=== PATIENT | male | born 1960 | race Caucasian/White ===

== ENCOUNTER 2018-11-03 14:01 | Outpatient (RCR) | payer BC, SELFPAY ==
--- NOTE | 2018-11-03 17:47 | HP.PTEVAL_ITS ---
Patient's Visit Information KVNG KUMAR is a 57 year old M referred to Physical Therapy by Garrett Watson DO with a diagnosis of LOW BACK PAIN. Date of Evaluation: 11/03/18 Physical Therapist: Andres Haddad, PT, Cert MDT, OCS - Visit Plan Frequency: 2x /Week Duration: 4 Weeks Plan: PT INTERVENTIONS KAREL EX'S,MANUAL THERAPY ,PROGRESS DLS ABD/BACK,POSTURAL EX'S,MODALITIES NEEDED - Subjective Findings: This 57 y/o male presents to physical therapy with lumbar pain with radicular symptoms left leg. Patient has had LPB for 2 years intermmitant ,past 6 months symptoms have been constant. Patient symptoms located buttuck hamstrings. Aggravting factors lifting,bending,golfing. Alleviating factors walking and standing, Denies parathesia/tingling. Bowel/bladder good. Coughing/sneezing-. Patient has had no ttauma. Patient seen DR recommended muscle relaxer/anti-inflammtory,also affects sleeping. Patient symptoms affects QOL and housework tasks. VOCATION: [employer]. SOCIAL: . HOBBIES: golfing, biking - Pain Bilateral Back Pain Intensity (Out of 10): 7 Pain Intensity Range: 10 Comment: worse Left Lower Extremity Pain Intensity (Out of 10): 0 Pain Intensity Range: 10 - Objective POSTURE: WFL. GAIT: normal jennifer. NEURO: denies parathesia/tingling,reflexes L3-4,L4-5,L,L5-S1 3/3. SYMMTRIES: align. MMT: quads/ham5/5,hip flexion /abduction 4/5,ankle 5/5. FLEXABLITY: HAMS WFL. LUMBAR ROM: flexion min loss,side glides min loss,extension min/mod loss - Special Tests L/S Slump test left side: Negative L/S Slump test right side: Negative L/S Left Straight Leg Raise: Negative L/S Right Straight Leg Raise: Negative Lumbar Standing: Flexion - Mechanical Response: No effect Lumbar Standing: Flexion - Symptoms During Testing: Increases Lumbar Standing: Flexion - Symptoms After Testing: Worse Lumbar Standing: Extension - Mechanical Response: No effect Lumbar Standing: Extension - Symptoms During Testing: Increases Lumbar Standing: Extension - Symptoms After Testing: No worse Lumbar Standing: Right Side Glides - Mechanical Response: No effect Lumbar Standing: Right Side [place] - Symptoms During Testing: Increases Lumbar Standing: Right Side [place] - Symptoms After Testing: Worse Lumbar Standing: Left Side [place] - Mechanical Response: No effect Lumbar Standing: Left Side [place] - Symptoms During Testing: No effect Lumbar Standing: Left Side [place] - Symptoms After Testing: No effect Lumbar Lying: Flexion - Mechanical Response: No effect Lumbar Lying: Flexion - Symptoms During Testing: Increases Lumbar Lying: Flexion - Symptoms After Testing: Worse Lumbar Lying: Extension - Mechanical Response: No effect Lumbar Lying: Extension - Symptoms During Testing: Decreases Lumbar Lying: Extension - Symptoms After Testing: Better Comments:: SOME BETTER AFTER EXTENSION MOBS AND SEVERAL REIL - Goals Goal 1:: Independant with HEP. Goal Time Frame: 4-6 Weeks Goal 2:: Improve posture/body mechanics no manage back pain. Goal Time Frame: 4-6 Weeks Goal 3:: Patient to improve lumbar ROM for function of recovery. Goal Time Frame: 4-6 Weeks Goal 4:: Patient to be d/c to prophalaxis . Goal Time Frame: 4-6 Weeks Goal 5:: Patient to decrease lumbar pain by 50% or greater to improve function. Goal Time Frame: 4-6 Weeks Goal 6:: Patient to be improve back owestry score by 5 points to improve QOL. Goal Time Frame: 4-6 Weeks - Rehabilitation Potential Physical Therapy Diagnosis: This patient has possible derrangement babove knee with symptoms worse with flexion better with extension correction of posture thus benifit from skilled PT Rehabilitation Potential: Good - Anticipated Interventions Patient/Client Instruction: Educate patient on: Condition, Plan of Care For the Purpose of:: To decrease pain, To increase ROM, To improve muscle perfor santosh and motor function, To increase tolerance to activity/condition/position, To improve ability of physical actions for home/community/work/leisure, To improve health of tissue, To decrease soft tissue restriction, To increase flexibility/ROM, To improve ability to perform tasks related to life management Therapeutic Exercise to Include: Strength training, Body mechanics, Postural training, Flexibilty training, Dynamic Lumbar Stabilization, Karel Exercises For the Purpose of:: To decrease pain, To increase ROM, To improve muscle performance and motor function, To improve ability to perform ADL's, To increase tolerance to activity/condition/position, To improve ability of physical actions for home/community/work/leisure, To improve health of tissue, To decrease soft tissue restriction, To increase flexibility/ROM, To improve ability to perform tasks related to life management Manual Therapy Techniques to Include: Mobilization Comment: lumbar For the Purpose of:: To decrease pain, To improve nutrient delivery to tissue, To improve health of tissue, To decrease soft tissue restriction TENS: Yes IF ES: Yes Cryotherapy (ice pack, ice massage): Yes Thermo therapy (hot pack): Yes Ultrasound (thermal/non thermal): Yes For the Purpose of:: To decrease pain, To increase ROM, To improve health of tissue, To decrease soft tissue restriction Thank you for the opportunity to evaluate your patient. For Medicare and Medicare HMO plans, please review the plan of care and approve it. It will need to be FAXED BACK to us at [phone] for Medicare purposes. For Medicare only, by signing this I certify the plan of care. Please let me know if there are questions or concerns regarding this plan of care. Physician Signature: Date:
--- NOTE | 2019-01-10 10:24 | HP.PTDCNRP_ITS ---
HP - Discharge Summary (1) - Patient Information KVNG KUMAR was seen in my office for initial evaluation on 11/03/18. The following Plan of Care was established for this patient: Initial Frequency: 2x /Week Initial Duration: 4 Weeks - Anticipated Interventions Patient/Client Instruction: Educate patient on: Condition, Plan of Care For the Purpose of:: To decrease pain, To increase ROM, To improve muscle performance and motor function, To increase tolerance to activity/condition/position, To improve ability of physical actions for home/community/work/leisure, To improve health of tissue, To decrease soft tis maren restriction, To increase flexibility/ROM, To improve ability to perform tasks related to life management Therapeutic Exercise to Include: Strength training, Body mechanics, Postural training, Flexibilty training, Dynamic Lumbar Stabilization, [place] Exercises For the Purpose of:: To decrease pain, To increase ROM, To improve muscle performance and motor function, To improve ability to perform ADL's, To increase tolerance to activity/condition/position, To improve ability of physical actions for home/community/work/leisure, To improve health of tissue, To decrease soft tissue restriction, To increase flexibility/ROM, To improve ability to perform tasks related to life management Manual Therapy Techniques to Include: Mobilization Comment: lumbar For the Purpose of:: To decrease pain, To improve nutrient delivery to tissue, To improve health of tissue, To decrease soft tissue restriction TENS: Yes IF ES: Yes Cryotherapy (ice pack, ice massage): Yes Thermo therapy (hot pack): Yes Ultrasound (thermal/non thermal): Yes For the Purpose of:: To decrease pain, To increase ROM, To improve health of tissue, To decrease soft tissue restriction This patient was last seen in our office . Pertinent comments regarding their Physical therapy will appear below: Pateint seen for PT for Intial PT evaluation for HEP At this point I will be discontinuing this patient from physical therapy. I would be happy to see this patient again in the future if found appropriate by the physician. Thank you! Andres Haddad, PT, Cert MDT, OCS
== END 2018-11-03 19:00 | disposition home or self-care (01) ==
LOC: PT 14:01
PROVIDERS: Family Provider Internal Medicine; PCP Internal Medicine; Referring Provider Family Medicine; Visit Provider Family Medicine
DX: M54.5 Low back pain (principal)
CPT/HCPCS: 97014; 97161; G0283

== ENCOUNTER → 2018-11-07 11:01 | Outpatient (CLI) | payer BC, SELFPAY ==
--- NOTE | 2018-11-07 11:15 | RAD_ITS ---
STUDY: X-RAY - ABDOMEN/PELVIS REASON FOR EXAM: Male, 57 years old. Left-sided kidney stone TECHNIQUE: 2 views COMPARISON: None. FINDINGS: An 8.4 mm calculus is seen in the left upper quadrant. It is probably within the left kidney. No similar findings on the right side. There is no bowel distention or free intraperitoneal air. The bones and joints are within normal limits RAD/Abdomen Single View IMPRESSION: And 8.4 mm calculus in the left upper quadrant. It is within the left kidney Electronically Signed: Tam Hernandez MD at 5:32 EDT Tel , Service support ,
== END ==
PROVIDERS: Family Provider Family Medicine; PCP Family Medicine; Referring Provider Urology; Visit Provider Urology
DX: N20.0 Calculus of kidney (principal)
CPT/HCPCS: 74018

== ENCOUNTER 2018-11-09 12:03 | Day surgery (SDC) | payer BC, SELFPAY ==
[2018-11-09 12:39] VITALS: BP 105/72; PULSE 80; RESP 16; TEMP 36.9; O2SAT 97; BMI 25.8
[2018-11-09] MEDS: Cefazolin 2 GM in 0.9% Normal Saline 100 ML IV (14:37)
--- NOTE | 2018-11-09 15:01 | DCINST_ITS ---
Discharge Diet: Light diet - advance as tolerated Discharge Activity: Return to Normal Activity Call your doctor if your incision/area has: Increased Pain/ Swelling Call your doctor if you observe: Fever of 101 or Higher Allergies/Adverse Reactions: Allergies No Known Allergies Allergy (Verified 11/08/18 14:38) Medications to take at Discharge Lisinopril 5 mg PO DAILY 11/08/18 Oxycodone HCl/Acetaminophen [Percocet 5-325 mg Tablet] 1 ea PO PRN PRN 11/08/18 Ciprofloxacin [Cipro] 500 mg PO BID #14 tab 11/09/18 The following prescriptions were given: Ciprofloxacin [Cipro] 500 mg PO BID #14 tab Prescription Printed Primary Care Physician: Garrett Watson DO [Primary Care Provider] - Test Results: Test results from this visit will be discussed in further detail at your follow- up appointment, if applicable. Please Follow Up With: Bimal Aguillon MD When: please call to make an appointment.
--- NOTE | 2018-11-09 15:02 | PCM.OPRPT ---
Report of Operation Date of Procedure: 11/09/18 Pre-Operative Diagnosis: Left ureteral calculi left renal calculi hydronephrosis fevers and chills Post-Operative Diagnosis: The same suspected infected renal stones Surgery/Procedure Performed:: Cystoscopy left retropyelogram left stent placement interpretation fluoroscopic images manipulation of stone Description of Surgical Findings:: 57-year-old male who presented for shockwave lithotripsy however is found to have a fever in the preoperative setting is not been feeling well abdominal pain at this point recommended we just place a stent and will have to delay the treatment of the stones until this infection is cleared we will send the urine for culture today. 57-year-old male taken back to the operating room with a smooth induction of general anesthesia he was placed in dorsolithotomy position went into the penis with the cystourethroscope into the urethra and penis testicles were prepped and draped in usual fashion, went into the urethra the entire length urethra is normal the prostate was normal inside the bladder I then cannulated the left ureteral orifice with a Glidewire and a Pollack catheter immediately I got a return of foul looking urine advance a Pollack catheter up into the kidney and obtain urine from the kidney collected this and sent off as a specimen I then identified the stone and try to push the stone in the ureter further higher [place] I then performed a retrograde pyelogram and interpreted the fluoroscopic images and then once I saw the stent in place then over the wire I placed a stent on the left side stent was in good position and pulled the wire the stent coiled in the kidney bladder good position it was a 6 [place] by 28 cm stent. Drain the bladder patient anesthetic was reversed plan to see him next week for checkup and then will plan for shockwave lithotripsy once we know the infections cured Type of Anesthesia:: General Drains: stent right 6 fr x 28cm - Admit VTE Documentation VTE Present on Admission: No VTE Mechan Device Prophylaxis: SCD's
[2018-11-09 15:18] VITALS: BP 105/72; BP 127/81; PULSE 91; RESP 16; TEMP 37.6; O2SAT 94
[2018-11-09] MEDS: Acetaminophen 500 MG Tablet PO (15:21)
[2018-11-09 15:30] VITALS: BP 105/72; BP 114/82; PULSE 86; RESP 16; O2SAT 93
[2018-11-09] MEDS: Ciprofloxacin 400 MG/200 ML BAG 200 MG IV (15:30)
[2018-11-09 15:45] VITALS: BP 105/72; BP 124/76; PULSE 81; RESP 16; O2SAT 93
[2018-11-09 15:56] VITALS: BP 105/72; BP 123/80; PULSE 81; RESP 16; TEMP 37.4; O2SAT 92
[2018-11-09 17:11] VITALS: BP 105/72; BP 112/68; PULSE 78; RESP 18; TEMP 37.1; O2SAT 94
== END 2018-11-09 17:13 | disposition home or self-care (01) ==
LOC: SDC 12:11 → AC 12:11
PROVIDERS: Family Provider Family Medicine; PCP Family Medicine; Referring Provider Urology; Visit Provider Urology
PROC: (CPT 50590; principal; 2018-11-09 14:45)
DX: N13.2 Hydronephrosis with renal and ureteral calculous obstruction (principal); I10 Essential (primary) hypertension; D69.3 Immune thrombocytopenic purpura; Z79.899 Other long term (current) drug therapy
CPT/HCPCS: 52005; 52332; 87086; J7120; C1769; J0744; J2405

== ENCOUNTER 2018-11-18 13:41 | Day surgery (SDC) | payer BC, SELFPAY ==
[2018-11-18 14:07] VITALS: BP 129/81; PULSE 88; RESP 16; TEMP 37.2; BMI 25.7
--- NOTE | 2018-11-18 16:26 | DCINST_ITS ---
Discharge Diet: Light diet - advance as tolerated Discharge Activity: Return to Normal Activity Call your doctor if your incision/area has: Sudden Increased Bleeding Call your doctor if you observe: Fever of 101 or Higher Suture Line Care: Avoid Pulling/Pushing, Avoid Pinching/Bending Allergies/Adverse Reactions: Allergies meperidine [From Demerol] Allergy (Verified 11/18/18 14:06) Low blood pressure Medications to take at Discharge Lisinopril 5 mg PO DAILY 11/08/18 Oxycodone HCl/Acetaminophen [Percocet 5-325 mg Tablet] 1 ea PO PRN PRN 11/08/18 Ciprofloxacin [Cipro] 500 mg PO BID #14 tab 11/09/18 Primary Care Physician: Garrett Watson DO [Primary Care Provider] - Test Results: Test results from this visit will be discussed in further detail at your follow- up appointment, if applicable. Please Follow Up With: Bimal Aguillon MD When: please call to make an appointment=- next week with xray
--- NOTE | 2018-11-18 17:34 | PCM.OPRPT ---
Report of Operation Date of Procedure: 11/18/18 Pre-Operative Diagnosis: Left renal calculi and left ureteral calculi status post stent Post-Operative Diagnosis: The same Surgery/Procedure Performed:: Cystoscopy, left extracorporeal shockwave lithotripsy of the kidney, left ureteroscopy laser lithotripsy of stone in the ureter and removal of stent. Description of Surgical Findings:: 57-year-old male who last week underwent cystoscopy and stent placement for obstructing stone and and also ureteral calculi and renal calculi exam fevers and chills and infection at the time he was treated with antibiotics now presents to the hospital for treatment of the obstructing stone also treatment of stone in the kidney. Patient was taken back to the operating room at the smooth induction of general anesthesia he was placed supine on the table, we identified the stone in the left kidney he underwent shockwave lithotripsy with a 3000 shockwaves to the stone at a rate of 90 shocks per minute up to 7 kV and we monitored the stone fracturing with fluoroscopy at the completion of the cycle of treatment around 3000 shockwaves stone it broken up successfully however the stone in the ureter was too low and was not able to be treated with shockwave lithotripsy so the patient was prepped and draped in usual sterile fashion we went in dorsolithotomy position went into the bladder with a 21 [place] rigid cystourethroscope grabbed the existing stent pulled stent to the meatus advance a wire through the stent pulled up in the kidney and over the wire went in with a flexible ureteroscope I was able to get into the ureter and then I treated the stone in the ureter with laser lithotripsy until the broken little tiny fragments and then I worked down the ureter no other fragments are seen along the course of the ureter I drained the bladder did not place a stent back in the stent was removed the patient's anesthetic is being reversed plan to see him back in a few weeks with a KUB. Type of Anesthesia:: General Drains: no stent - Admit VTE Documentation VTE Present on Admission: No VTE Mechan Device Prophylaxis: SCD's
[2018-11-18 17:42] VITALS: BP 129/81; BP 140/86; PULSE 66; RESP 18; TEMP 37.5; O2SAT 98
[2018-11-18 17:45] VITALS: BP 129/81; BP 145/91; PULSE 70; RESP 18; O2SAT 100
[2018-11-18 18:00] VITALS: BP 129/81; BP 136/92; PULSE 65; RESP 18; O2SAT 100
[2018-11-18 18:12] VITALS: BP 129/81; BP 152/90; PULSE 65; RESP 18; TEMP 37.1; O2SAT 99
[2018-11-18 19:14] VITALS: BP 129/81
== END 2018-11-18 19:17 | disposition home or self-care (01) ==
LOC: SDC 13:43 → AC 13:44
PROVIDERS: Family Provider Family Medicine; PCP Family Medicine; Referring Provider Urology; Visit Provider Urology
PROC: (CPT 50590; principal; 2018-11-18 15:25)
DX: N20.2 Calculus of kidney with calculus of ureter (principal); Z87.442 Personal history of urinary calculi; I10 Essential (primary) hypertension; D69.3 Immune thrombocytopenic purpura
CPT/HCPCS: 00873; 50590; 52310; J7120; C1769; J2405

== ENCOUNTER → 2018-12-08 11:05 | Outpatient (CLI) | payer BC, SELFPAY ==
[2018-11-18 14:07] VITALS: BMI 25.7
--- NOTE | 2018-12-08 11:07 | RAD_ITS ---
STUDY: X-RAY - ABDOMEN/PELVIS REASON FOR EXAM: Male, 58 years old. History of left-sided kidney stone. TECHNIQUE: Two AP supine views of the abdomen and pelvis. COMPARISON: 07 November 2018 abdomen FINDINGS: Normal visualized lung bases. There is an unremarkable bowel gas pattern. There is no demonstrated free abdominal air. The visualized liver, spleen and kidneys are grossly normal in size and morphology. There is reduced prominence of the calcification overlying the left renal shadow compared to previous exam. Normal visualized osseous structures. RAD/Abdomen Single View IMPRESSION: Reduced appearance of calcification overlying the left renal shadow, clinically correlate for prior treatment. Electronically Signed: Vijay Aguilar DO at 21:19 EDT , Service support ,
== END ==
PROVIDERS: Family Provider Family Medicine; PCP Family Medicine; Referring Provider Urology; Visit Provider Urology
DX: N20.0 Calculus of kidney (principal)
CPT/HCPCS: 74018

== ENCOUNTER 2020-11-08 16:53 | Observation (INO) | payer BC, SELFPAY ==
[2020-11-08 16:54] VITALS: BP 138/78; PULSE 97; RESP 18; TEMP 36.7; O2SAT 92; BMI 56.9
--- NOTE | 2020-11-08 18:04 | EX.ED.DYSGE1 ---
HPI History of Present Illness Chief Complaint: Abn Labs Informant: patient Narrative Narrative: Sent in from hematology for abnormal labs. Patient reports had blood work at 11 AM. History of ITP for the past 12 years. States recently platelets were in the 20s being followed by Dr. Melara. He states most recent blood work with platelets at 14, he started on prednisone 20 mg 3 times daily over the past 2 days. Status post 7 doses prior to getting blood work earlier today. Take an additional dose after blood work. He was called due to platelets being at 9. Denies any rectal bleeding hematuria, gum bleeding. 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 Sanchez, will need IVIG 1 g/kg and admission. Prior similar symptoms: No PFSH [facility] Medical History (Updated 11/08/20 @ 20:[address] Tyson Warren DO) Chronic ITP (idiopathic thrombocytopenic purpura) History of ITP Home Medications lisinopril 5 mg PO DAILY 11/08/18 [History Last Taken 11/08/20] prednisone 20 mg PO TID 11/08/20 [History Last Taken 11/08/20] Allergy/AdvReac Type Severity Reaction Status Date / Time meperidine [From Demerol] Allergy Low blood Verified 11/08/20 16:55 pressure Social History Smoking Status: Never smoker ROS ROS ED Constitutional Constitutional ED: Denies chills, fever(s) or sweats Eyes Eyes: Denies change in vision ENT ENT ED: Denies dysphagia or sore throat Cardiovascular Cardiovascular: Denies chest pain, leg edema, palpitations or racing heartbeat Respiratory/Chest Respiratory/Chest: Denies cough, dyspnea or dyspnea on exertion Gastrointestinal Gastrointestinal: Denies abdominal pain, diarrhea, nausea or vomiting Genitourinary Genitourinary ED: Denies dysuria, hematuria or urinary frequency Musculoskeletal Musculoskeletal: Denies back pain, extremity pain or neck pain Integumentary Denies rash or wounds Neurologic Neurologic: Denies headache(s), paresthesias or weakness EXAM Physical Exam Const Vital Signs: 11/08/20 16:54 11/08/20 18:28 Temperature 98.1 F Temperature Source Temporal Pulse Rate 97 Respiratory Rate 18 Respiratory Pattern Normal Blood Pressure 138/78 H Blood Pressure Mean 98 Pulse Ox 92 Oxygen Delivery Method Room Air Positive well nourished and well developed General Appearance ED: well developed and NAD HEENT Reports moist mucous membranes HEENT Narrative: No bleeding of gums. normocephalic and atraumatic Eyes PERRL, EOMs intact bilaterally and conjunctivae normal General Eye ED: Yes normal appearance of both eyes Neck no lymphadenopathy and supple General: Negative for tenderness Chest Wall Chest: Negative for tenderness Resp normal respiratory effort and normal air movement Effort and Inspection: symmetric chest movement; Negative for respiratory distress Cardio regular rate, regular rhythm and no murmurs Peripheral Pulses: pulses 2+ throughout GI normal to inspection, nondistended, normoactive bowel sounds and non-tender Palpation: Negative for guarding or rebound tenderness present Back/Spine no CVA tenderness and no thoracic nor lumbar tenderness Extremity normal to inspection General Extremety ED: Negative for edema or tenderness General Extremity: Negative for edema Neuro oriented x3 and no sensory deficits noted Sensorium / Orientation: awake and alert Skin Skin Narrative: Scattered petechiae lesions bilateral arms and lower extremities. More so on the upper extremities. MDM MDM MDM Narrative Medical decision making narrative: Patient nontoxic there was petechiae on exam. Recheck labs platelets at 18. This was higher than earlier from reported 9. I did rediscuss with Dr. Sanchez, with it being the weekend holiday recommended continued plan with IVIG infusion at 1 g/kg dosing daily for the next 2 days. Reports of platelets starts improving can plan to discharge home with 2 doses. Recommended admission to hospitalist. I spoke with Dr. Mckenna who evaluated for admission. Lab Data Attestation: I reviewed the patient's lab results. Labs: Laboratory Results - last 24 hr 11/08/20 11/08/20 11/08/20 18:15 18:15 18:15 WBC 13.1 H RBC 5.04 Hgb 14.4 Hct 44.5 MCV 88.3 MCH 28.6 MCHC 32.4 RDW Std Deviation 46.3 H RDW Coeff of Dave 14.3 Plt Count 18 L* Immature Gran % (Auto) 0.800 Neut % (Auto) 86.4 H Lymph % (Auto) 7.3 L [place] % (Auto) 5.3 Eos % (Auto) 0.0 Baso % (Auto) 0.2 Absolute Neuts (auto) 11.3 H Absolute Lymphs (auto) 0.95 Nucleated RBC % 0 Diff Path Review May foll Platelet Estimate MKD DEC RBC Morphology NORM C+C PT 11.9 INR 0.9 APTT 22.7 L Sodium 142 Potassium 4.1 Chloride 107 Carbon Dioxide 28.0 Anion Gap 7 BUN 21 H Creatinine 1.25 Estim Creat Clear Calc 67.77 Est GFR (MDRD) Af Amer 76 Est GFR (MDRD) Non-Af 63 BUN/Creatinine Ratio 16.8 Glucose 121 H Calcium 9.4 Discharge Plan Triage Chief Complaint: Abn Labs ED Provider: Tyson Warren Dx/Rx/DC Orders Clinical Impression: History of idiopathic thrombocytopenic purpura, Acute idiopathic thrombocytopenic purpura Prescriptions: No Action lisinopril 5 MG tablet 5 mg PO DAILY RF: 0 prednisone 20 mg tablet 20 mg PO TID RF: 0 Primary Care Provider: Garrett Watson Referrals: Garrett Watson DO [Primary Care Provider] - Disposition Disposition: Acute Care [facility]
[2020-11-08 18:33] LABS: Absolute Lymphocyte Count 0.95 X10^3/uL (0.83-4.51); Absolute Neutrophil Count 11.3 X10^3/uL (2.0-7.7); Basophil# 0.02 X10^3/uL; Basophil% 0.2 % (0-1); Hematocrit 44.5 % (40-54); Hemoglobin 14.4 g/dL (13.0-16.5); Lymphocyte # 0.95 X10^3/ul (0.83-4.51); Lymphocyte % 7.3 % (19-41); Mean Corp Hgb Conc 32.4 g/dL (32-36); Mean Corpuscular Hgb 28.6 pg (27.0-32.0); Mean Corpuscular Volume 88.3 fL (80-94); Monocyte# 0.69 X10^3/uL; Monocyte% 5.3 % (0-10); NRBC Flagged by Analyzer 0 % (0-5); Neutrophil # 11.29 X10^3/uL (2.7-7.7); Neutrophil % 86.4 % (47-70); POSITIVE COUNT YES; RBC Distribution Width CV 14.3 % (11.6-14.6); RBC Distribution Width SD 46.3 fl (35.1-43.9); Red Blood Count 5.04 M/mm3 (4.6-6.2); White Blood Count 13.1 K/mm3 (4.4-11.0)
[2020-11-08 18:36] LABS: Differential Indicated SCAN CRITERIA MET; Platelet Count 18 K/mm3 (150-450)
--- NOTE | 2020-11-08 18:39 | ED.RN ---
LAB CALLED CRITICAL OF PLATELETS OF 18.DR EVANS
[2020-11-08 18:45] LABS: Anion Gap 7 (5-15); BUN 21 mg/dL (7-18); BUN/Creat Ratio 16.8 RATIO (10-20); Calcium,Total 9.4 mg/dL (8.5-10.1); Chloride 107 mmol/L (98-107); Creatinine, Serum 1.25 mg/dL (0.70-1.30); EST Glomerular Filtration Rate 63 mL/min (>60); Est Glom Filt Rate - Afr Amer 76 mL/min (>60); Estimated Creatinine Clearance 67.77 ml/min; Glucose 121 mg/dL (74-106); Potassium 4.1 mmol/L (3.5-5.1); Sodium Level 142 mmol/L (136-145)
[2020-11-08 18:46] LABS: International Normalized Ratio 0.9; Partial Thromboplast Time 22.7 Seconds (24.1-36.2); Prothrombin Time (Protime)PT. 11.9 SECONDS (11.7-14.9)
[2020-11-08 19:09] LABS: Platelet Estimate MKD DEC (ADEQ); Red Cell Morphology NORM C+C NORMAL (NORM C&C)
--- NOTE | 2020-11-08 19:40 | PCM.HP.STD ---
HPI - General General Date of Admission: 11/08/20 Date of Service: 11/08/20 Chief Complaint: Abnormal labs, low plts, send per hematology/oncology. HPI Narrative The patient is a 59 y/o M w/ PMHx: ITP, HTN, HLD, Anxiety who presents to the [facility] ED on 11/08/20 with history of recent evaluation outpatient with Dr. Melara with outpatient plts 20, prior had been 14 with recent prednisone 20 mg TID with a current total of 7 doses with repeat level following noted to be lowering at 9 prompting ED referral for IVIG. Patient noted petechiae and bruising primarily at any lab draw sites but denied any hematuria, rectal bleeding or bleeding of his gums. 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 He does shave routinely which was discussed to avoid at this point until platelets improved and he is understanding. Work-up in the ED included T 98.1, heart rate 97, BP 130/78, 99% on room air, CBC with WC 13.1, hemoglobin 14.4, platelets 18 although earlier in the day at oncology office was 9, left shift noted, PTT 22.7, PT 11.9, INR 0.9, BMP with BUN/creatinine 21/1.25, glucose 121 otherwise not marked appearing. In the ED discussed with ED physician and IVIG 1 mg/kg initiation requested which was also reviewed and discussed with pharmacy with dosing appropriately initiated. [facility] Medical History (Updated 11/08/20 @ 20:56 by Liliane Solorio) Chronic ITP (idiopathic thrombocytopenic purpura) GERD (gastroesophageal reflux disease) History of anxiety History of hyperlipidemia History of hypertension History of ITP Hypertension Kidney stones Non-smoker Osteoarthritis Seasonal affective disorder Home Medications lisinopril 5 mg PO DAILY 11/08/18 [History Last Taken 11/08/20 08:00] prednisone 20 mg PO TID 11/08/20 [History Last Taken 11/08/20 12:00] Allergy/AdvReac Type Severity Reaction Status Date / Time meperidine [From Demerol] Allergy Low blood Verified 11/08/20 16:55 pressure Family History (Updated 11/08/20 @ 20:[address] Bernarda Mckenna MD) Mother Osteoarthritis Father Heart disease Surgical History S/P tonsillectomy S/P ureteral stent placement Social History (Updated 11/08/20 @ 20:[address] Bernarda Mckenna MD) household members: none Smoking Status: Never smoker alcohol intake: current alcohol intake frequency: a few times a month substance use type: does not use ROS ROS Narrative Admission Review of Systems: CONSTITUTIONAL: No weight loss, fever, chills, weakness or fatigue. HEENT: Eyes: No visual loss, blurred vision, double vision or yellow sclerae. Ears, Nose, Throat: No hearing loss, sneezing, congestion, runny nose or sore throat. SKIN: No rash or itching, lesions, wounds. CARDIOVASCULAR: No chest pain, chest pressure or chest discomfort, palpitations, edema, orthopnea, syncopal events. RESPIRATORY: No shortness of breath, cough or sputum, wheezing, hemoptysis. GASTROINTESTINAL: No anorexia, nausea, vomiting or diarrhea, abdominal pain, melena, BRBPR. GENITOURINARY: No dysuria, frequency, urgency or retention. NEUROLOGICAL: No headache, dizziness, syncope, paralysis, ataxia, numbness or tingling in the extremities, focal weakness, change in bowel or bladder control, seizure. MUSCULOSKELETAL: No muscle, back pain, joint pain or stiffness. HEMATOLOGIC: + anemia, bleeding or bruising. LYMPHATICS: No enlarged nodes. No history of splenectomy. PSYCHIATRIC: + Seasonal affective disorder, no specific history of depression or anxiety. ENDOCRINOLOGIC: No reports of sweating, cold or heat intolerance. No polyuria or polydipsia. ALLERGIES: No history of asthma, hives, eczema or rhinitis. Vital Signs Vital Signs Vital Signs: 11/08/20 16:54 11/08/20 18:28 Temperature 98.1 F Temperature Source Temporal Pulse Rate 97 Respiratory Rate 18 Respiratory Pattern Normal Blood Pressure 138/78 H Blood Pressure Mean 98 Pulse Ox 92 Oxygen Delivery Method Room Air Weight Weight: 407 lb 13.683 oz Body Mass Index (BMI) 56.9 Physical Exam Narrative Physical Examination: General: Awake, alert, oriented x 3 and cooperative, seated upright in the ED bed in no apparent distress. Skin: Normal color, normal turgor, no icterus, no cyanosis except occasional petechial findings but at sites of previous lab draws, no bleeding gums or other diffuse evidence of bleeding. HEENT: AT/NC, EOMI, PERRLA, MMM, no carotid bruits or JVD noted. Lungs: CTA bilaterally, moderate effort, mild decrease BL bases, no rales, ronchi or wheezing. Heart: Regular rate and rhythm; no gallop, rub audible. Abdomen: Soft, NTTP, ND, normal BS, no HSM. Extremities: No cyanosis, clubbing, or edema. Neurological: Patient awake, alert, oriented as noted, cognitive function intact; pupils equally reactive to light and accommodation, cranial nerves II-XII grossly normal, moving all 4 extremities, no focal deficits, strength preserved. Psychiatric: Affect appears normal, no acute evidence of depressive or anxiety feelings. Results Lab / Micro Data Result Diagrams: 11/08/20 18:15 11/08/20 18:15 Labs: Laboratory Results - last 24 hr 11/08/20 11/08/20 11/08/20 18:15 18:15 18:15 WBC 13.1 H RBC 5.04 Hgb 14.4 Hct 44.5 MCV 88.3 MCH 28.6 MCHC 32.4 RDW Std Deviation 46.3 H RDW Coeff of Dave 14.3 Plt Count 18 L* Immature Gran % (Auto) 0.800 Neut % (Auto) 86.4 H Lymph % (Auto) 7.3 L Delta % (Auto) 5.3 Eos % (Auto) 0.0 Baso % (Auto) 0.2 Absolute Neuts (auto) 11.3 H Absolute Lymphs (auto) 0.95 Nucleated RBC % 0 Diff Path Review May foll Platelet Estimate MKD DEC RBC Morphology NORM C+C PT 11.9 INR 0.9 APTT 22.7 L Sodium 142 Potassium 4.1 Chloride 107 Carbon Dioxide 28.0 Anion Gap 7 BUN 21 H Creatinine 1.25 Estim Creat Clear Calc 67.77 Est GFR (MDRD) Af Amer 76 Est GFR (MDRD) Non-Af 63 BUN/Creatinine Ratio 16.8 Glucose 121 H Calcium 9.4 Assessment & Plan Assessment/Plan (1) Acute idiopathic thrombocytopenic purpura: PLAN: The patient is a 59 y/o M w/ PMHx: ITP, HTN, HLD, Anxiety who presents to the [facility] ED on 11/08/20 with history of recent evaluation outpatient with Dr. Melara with outpatient plts 20, prior had been 14 with recent prednisone 20 mg TID with a current total of 7 doses with repeat level following noted to be lowering at 9 prompting ED referral. 1. Acute idiopathic thrombocytopenia purpura, on chronic: Patient with recent worsened platelet count, ongoing despite oral prednisone therapy outpatient, will admit to medical surgical floor, maintain on telemetry, continue with planned IVIG administration to initiate now with 1 mg/kg daily dosing, will continue with oncology/hematology consultation, Dr. Melara with who the patient follows, trend CBC daily and once clinically improving would plan discharge to home. 2. Hypertension: Continue home regimen including lisinopril with hold parameters as needed, PRN hydralazine. 3. Hyperlipidemia: Not on regimen, defer to outpatient. 4. Anxiety, seasonal affective disorder: Patient not on regimen, encourage continued outpatient follow-up. 5. DVT prophylaxis: We will defer SCDs, chemoprophylaxis given #1. Charges/Coding Visit Charges OBSV E&M: 79294 Initial observation care L3
[2020-11-08 19:57] VITALS: BMI 26.6
[2020-11-08 20:46] VITALS: BP 131/72; PULSE 91; RESP 16; TEMP 36.6; O2SAT 97
[2020-11-08 20:47] LABS: Magnesium 2.5 mg/dL (1.6-2.6); Phosphorus 1.9 mg/dL (2.5-4.9)
[2020-11-08 20:51] VITALS: BMI 26.3
[2020-11-08 21:49] VITALS: BP 151/77; PULSE 64; RESP 16; TEMP 37.1; O2SAT 96
[2020-11-08] MEDS: Famotidine 20 MG Tablet PO (21:55)
[2020-11-08] MEDS: 0.9% Saline Lock 10 ML Syringe IV (22:01)
[2020-11-08] MEDS: Dextrose 5% 250 ML 100 ML IV (22:04)
[2020-11-08 23:00] VITALS: PULSE 67
[2020-11-08] MEDS: DiphenhydrAMINE 25 MG Capsule PO (23:45)
[2020-11-08] MEDS: Acetaminophen 325 MG Tablet 650 MG PO (23:45)
[2020-11-09] VITALS (14 sets, daily range): BP systolic 129–165; BP diastolic 66–87; PULSE 54–89; RESP 15–18; TEMP 36.8–37.4; O2SAT 94–100
[2020-11-09] MEDS: 0.9% Saline Lock 10 ML Syringe IV ×2 (00:14→05:16)
[2020-11-09] MEDS: Immune Globulin 20 gm Premixed Solution 37.5 BAG IV (00:15)
[2020-11-09] MEDS: Immune Globulin 20 gm Premixed Solution 187 BAG IV (02:27)
[2020-11-09] MEDS: Immune Globulin 20 gm Premixed Solution 262 BAG IV (03:34)
[2020-11-09] MEDS: Immune Globulin 10 gm Premixed Solution 300 BAG IV (04:36)
[2020-11-09] MEDS: Immune Globulin 5 GM Premixed Solution 337 BAG IV (05:01)
[2020-11-09 07:42] LABS: Absolute Lymphocyte Count 1.72 X10^3/uL (0.83-4.51); Absolute Neutrophil Count 6.7 X10^3/uL (2.0-7.7); Basophil# 0.01 X10^3/uL; Basophil% 0.1 % (0-1); Eosinophil# 0.02 X10^3/uL; Eosinophils% 0.2 % (0-5); Hematocrit 38.1 % (40-54); Hemoglobin 12.4 g/dL (13.0-16.5); Lymphocyte # 1.72 X10^3/ul (0.83-4.51); Lymphocyte % 18.8 % (19-41); Mean Corp Hgb Conc 32.5 g/dL (32-36); Mean Corpuscular Hgb 28.6 pg (27.0-32.0); Monocyte# 0.62 X10^3/uL; Monocyte% 6.8 % (0-10); NRBC Flagged by Analyzer 0 % (0-5); Neutrophil # 6.74 X10^3/uL (2.7-7.7); Neutrophil % 73.6 % (47-70); POSITIVE COUNT YES; Platelet Count 31 K/mm3 (150-450); RBC Distribution Width CV 14.4 % (11.6-14.6); RBC Distribution Width SD 46.4 fl (35.1-43.9); Red Blood Count 4.33 M/mm3 (4.6-6.2); White Blood Count 9.2 K/mm3 (4.4-11.0)
[2020-11-09 07:44] LABS: Differential Indicated SCAN CRITERIA MET
[2020-11-09 08:08] LABS: ALB/GLOB Ratio 0.7 RATIO (0.9-2.4); AST(SGOT) 8 U/L (15-37); Alanine Aminotransfer ALT/SGPT 20 U/L (16-61); Albumin, Serum 3.2 g/dL (3.2-5.0); Alkaline Phosphatase 67 U/L (45-117); Anion Gap 7 (5-15); BUN 18 mg/dL (7-18); BUN/Creat Ratio 15.9 RATIO (10-20); Calcium,Total 8.6 mg/dL (8.5-10.1); Chloride 106 mmol/L (98-107); Creatinine, Serum 1.13 mg/dL (0.70-1.30); EST Glomerular Filtration Rate 70 mL/min (>60); Est Glom Filt Rate - Afr Amer 85 mL/min (>60); Estimated Creatinine Clearance 74.97 ml/min; Globulin 4.4 g/dL (2.2-4.2); Glucose 91 mg/dL (74-106); Potassium 3.7 mmol/L (3.5-5.1); Protein, Total 7.6 g/dL (6.4-8.2); Sodium Level 139 mmol/L (136-145)
--- NOTE | 2020-11-09 08:11 | CON.PCM_ITS ---
Consult Date of Consult: 11/09/[address] Bernarda Mckenna regarding patient with history of acute ITP. My final recommendation will be communicated to medical staff and also by electronic medical record HPI Narrative The patient is a 59 y/o M w/ PMHx: ITP, HTN, HLD, Anxiety who presents to the [facility] ED on 11/08/20 with history of recent evaluation outpatient with Dr. Melara with outpatient plts 20,000 prior had been 14,0000. He recently started prednisone 20 mg TID with a current total of 7 doses with repeat level following noted to be lowering at 9,000 prompting ED referral for IVIG. Patient noted petechiae and bruising primarily at any lab draw sites but denied any hematuria, rectal bleeding or bleeding of his gums. . Work-up in the ED included T 98.1, heart rate 97, BP 130/78, 99% on room air, CBC with WC 13.1, hemoglobin 14.4, platelets 18 although earlier in the day at oncology office was 9, left shift noted, PTT 22.7, PT 11.9, INR 0.9, BMP with BUN/creatinine 21/1.25, glucose 121 otherwise not marked appearing. In the ED discussed with ED physician and IVIG 1 mg/kg initiation requested which was also reviewed and discussed with pharmacy with dosing appropriately initiated. He was previously diagnosed with ITP 10 years ago and was treated with short course of prednisone. For the last 2 months he complains of arthritic pain and has been using Aleve and Tylenol on a regular basis. He also taking fish oil supplements. He denies history of viral hepatitis, HIV or significant alcohol use [facility] Medical History (Updated 11/08/20 @ 20:56 by Liliane Solorio) Acute/chronic ITP (idiopathic thrombocytopenic purpura) GERD (gastroesophageal reflux disease) History of anxiety History of hyperlipidemia History of hypertension History of ITP Hypertension Kidney stones Non-smoker Osteoarthritis Seasonal affective disorder Home Medications lisinopril 5 mg PO DAILY 11/08/18 [History Last Taken 11/08/20 08:00] prednisone 20 mg PO TID 11/08/20 [History Last Taken 11/08/20 12:00] Allergy/AdvReac Type Severity Reaction Status Date / Time meperidine [From Demerol] Allergy Low blood Verified 11/08/20 16:55 pressure Family History (Updated 11/08/20 @ 20:[address] Bernarda Mckenna MD) Mother Osteoarthritis Father Heart disease Surgical History S/P tonsillectomy S/P ureteral stent placement Social History (Updated 11/08/20 @ 20:[address] Bernarda Mckenna MD) household members: none Smoking Status: Never smoker alcohol intake: current alcohol intake frequency: a few times a month substance use type: does not use ROS ROS Narrative Admission Review of Systems: CONSTITUTIONAL: No weight loss, fever, chills, weakness or fatigue. HEENT: Eyes: No visual loss, blurred vision, double vision or yellow sclerae. Ears, Nose, Throat: No hearing loss, sneezing, congestion, runny nose or sore throat. SKIN: No rash or itching, lesions, wounds. CARDIOVASCULAR: No chest pain, chest pressure or chest discomfort, palpitations, edema, orthopnea, syncopal events. RESPIRATORY: No shortness of breath, cough or sputum, wheezing, hemoptysis. GASTROINTESTINAL: No anorexia, nausea, vomiting or diarrhea, abdominal pain, melena, BRBPR. GENITOURINARY: No dysuria, frequency, urgency or retention. NEUROLOGICAL: No headache, dizziness, syncope, paralysis, ataxia, numbness or tingling in the extremities, focal weakness, change in bowel or bladder control, seizure. MUSCULOSKELETAL: No muscle, back pain, joint pain or stiffness. HEMATOLOGIC: + anemia, bleeding or bruising. LYMPHATICS: No enlarged nodes. No history of splenectomy. PSYCHIATRIC: + Seasonal affective disorder, no specific history of depression or anxiety. ENDOCRINOLOGIC: No reports of sweating, cold or heat intolerance. No polyuria or polydipsia. ALLERGIES: No history of asthma, hives, eczema or rhinitis. Physical Exam Narrative Physical Examination: General: Awake, alert, oriented x 3 and cooperative, seated upright in the ED bed in no apparent distress. Skin: Normal color, normal turgor, no icterus, no cyanosis except occasional petechial findings but at sites of previous lab draws, no bleeding gums or other diffuse evidence of bleeding. HEENT: AT/NC, EOMI, PERRLA, MMM, no carotid bruits or JVD noted. Lungs: CTA bilaterally, moderate effort, mild decrease BL bases, no rales, ronchi or wheezing. Heart: Regular rate and rhythm; no gallop, rub audible. Abdomen: Soft, NTTP, ND, normal BS, no HSM. Extremities: No cyanosis, clubbing, or edema. Neurological: Patient awake, alert, oriented as noted, cognitive function intact; pupils equally reactive to light and accommodation, cranial nerves II- XII grossly normal, moving all 4 extremities, no focal deficits, strength preserved. Psychiatric: Affect appears normal, no acute evidence of depressive or anxiety feelings. Assessment & Plan Assessment/Plan (1) Acute idiopathic thrombocytopenic purpura: The patient is a 59 y/o M w/ PMHx: ITP, HTN, HLD, Anxiety who presents to the [facility] ED on 11/08/20 with history of ITP. He recently started on prednisone 20 mg TID last week. His platelet count went from 14,000 to 9,000 which brought him to the emergency room for further evaluation and treatment. -He received 1 dose of IVIG 1gram/kg last night and his platelet count responded > 34,000 this morning -No clinical bleeding or bruising. Assessment & Plan Assessment/Plan (1) Acute idiopathic thrombocytopenic purpura: PLAN: -Continue prednisone 60mg/day and taper as previously instructed. -Continue Pepcid prophylaxis while on prednisone therapy. -Avoid aspirin, NSAIDs and dietary supplements -Follow-up and repeat CBC next week in our office -Possibly start N'plate if he still has persistent thrombocytopenia from ITP -Discharged home this morning & call if he has any excessive bleeding or bruising
[2020-11-09 08:24] LABS: Platelet Estimate MKD DEC (ADEQ)
--- NOTE | 2020-11-09 08:37 | PCM.DC ---
Discharge Instructions Diet Discharge Diet: No restrictions Activity Discharge Activity: Return to Normal Activity Follow Up Care Test Results: Test results from this visit will be discussed in further detail at your follow-up appointment, if applicable. Discharge Plan Admission Admit Date/Time: 11/08/20 20:23 Attending Provider: Calvin Figueroa Primary Care Provider: Garrett Watson Consulting Providers: Pranay eMlara Discharge Orders/Prescriptions Prescriptions: New famotidine 20 mg Tablet 20 mg PO DAILY Qty: 0 RF: 0 Continued lisinopril 5 MG tablet 5 mg PO DAILY RF: 0 prednisone 20 mg tablet 20 mg PO TID RF: 0 Referrals / Follow Up: Garrett Watson DO [Primary Care Provider] - Within 2 Weeks Pranay Melara DO [STAFF PHYSICIAN] - In 1 Week Disposition Disposition (needs filled in before D/C Order can be placed): Home, Self Care
--- NOTE | 2020-11-09 08:40 | PCM.DC.SUM ---
Providers Date of Admission: 11/08/20 Primary Care Physician: Dr. 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 Previously, his platelets had been 14,000 and had been started on prednisone. Patient has been noticing petechiae and bruising. Patient was advised to come to the emergency room. His platelets upon arrival were 18,000. Patient did receive one-time dose of IVIG and today at 31,000. Patient was seen in consultation by Dr. Sanchez and felt that since the patient's bruising had stopped and patient's platelets have gone up with IVIG that he is safe for discharge. Patient will continue with the prednisone as previously prescribed by Dr. Melara and patient will follow up with next week. Physical Exam Narrative up at the side of bed. afebrile. Const alert General Appearance: cooperative Weight / BMI Weight Weight: 86.273 kg Body Mass Index (BMI) 26.3 ABG / Lab / Microbiology Data Result Diagrams: 11/09/20 06:57 11/09/20 06:57 Laboratory: Laboratory Results - last 24 hr 11/08/20 11/08/20 11/08/20 18:15 18:15 18:15 WBC 13.1 H RBC 5.04 Hgb 14.4 Hct 44.5 MCV 88.3 MCH 28.6 MCHC 32.4 RDW Std Deviation 46.3 H RDW Coeff of Dave 14.3 Plt Count 18 L* MPV Immature Gran % (Auto) 0.800 Neut % (Auto) 86.4 H Lymph % (Auto) 7.3 L [place] % (Auto) 5.3 Eos % (Auto) 0.0 Baso % (Auto) 0.2 Absolute Neuts (auto) 11.3 H Absolute Lymphs (auto) 0.95 Nucleated RBC % 0 Diff Path Review May foll Platelet Estimate MKD DEC RBC Morphology NORM C+C PT 11.9 INR 0.9 APTT 22.7 L Sodium 142 Potassium 4.1 Chloride 107 Carbon Dioxide 28.0 Anion Gap 7 BUN 21 H Creatinine 1.25 Estim Creat Clear Calc 67.77 Est GFR (MDRD) Af Amer 76 Est GFR (MDRD) Non-Af 63 BUN/Creatinine Ratio 16.8 Glucose 121 H Calcium 9.4 Phosphorus Magnesium Total Bilirubin AST ALT Alkaline Phosphatase Total Protein Albumin Globulin Albumin/Globulin Ratio 11/08/20 11/09/20 11/09/20 Unknown 06:57 06:57 WBC 9.2 RBC 4.33 L Hgb 12.4 L Hct 38.1 L MCV 88.0 MCH 28.6 MCHC 32.5 RDW Std Deviation 46.4 H RDW Coeff of Dave 14.4 Plt Count 31 L* MPV TNP Immature Gran % (Auto) 0.500 Neut % (Auto) 73.6 H Lymph % (Auto) 18.8 L [place] % (Auto) 6.8 Eos % (Auto) 0.2 Baso % (Auto) 0.1 Absolute Neuts (auto) 6.7 Absolute Lymphs (auto) 1.72 Nucleated RBC % 0 Diff Path Review Platelet Estimate MKD DEC RBC Morphology PT INR APTT Sodium 139 Potassium 3.7 Chloride 106 Carbon Dioxide 26.0 Anion Gap 7 BUN 18 Creatinine 1.13 Estim Creat Clear Calc 74.97 Est GFR (MDRD) Af Amer 85 Est GFR (MDRD) Non-Af 70 BUN/Creatinine Ratio 15.9 Glucose 91 Calcium 8.6 Phosphorus 1.9 L Magnesium 2.5 Total Bilirubin 0.60 AST 8 L ALT 20 Alkaline Phosphatase 67 Total Protein 7.6 Albumin 3.2 Globulin 4.4 H Albumin/Globulin Ratio 0.7 L D/C Instructions Discharge Diet: No restrictions Meaningful Use Info Meaningful Use Diagnoses (Choose all that apply): None applicable Discharge Plan Admission Admit Date/Time: 11/08/20 20:23 Attending Provider: Calvin Figueroa Primary Care Provider: Garrett Watson Consulting Providers: Pranay Melara Discharge Orders/Prescriptions Prescriptions: New famotidine 20 mg Tablet 20 mg PO DAILY Qty: 0 RF: 0 Continued lisinopril 5 MG tablet 5 mg PO DAILY RF: 0 prednisone 20 mg tablet 20 mg PO TID RF: 0 Referrals / Follow Up: Garrett Watson DO [Primary Care Provider] - Within 2 Weeks Pranay Melara DO [STAFF PHYSICIAN] - In 1 Week Disposition Disposition (needs filled in before D/C Order can be placed): Home, Self Care Charges/Coding Visit Charges OBSV E&M: 80405 Observation care discharge
[2020-11-12 11:58] LABS: Pathologist Review Reviewed
[2020-11-12 12:09] LABS: Pathologist Review Reviewed
== END 2020-11-09 10:00 | disposition home or self-care (01) ==
LOC: ED 20:26 → MS3 20:53
PROVIDERS: Admitting Provider Family Medicine; Emergency Provider Emergency Medicine; PCP Family Medicine
DX: D69.3 Immune thrombocytopenic purpura (principal); I10 Essential (primary) hypertension; E78.5 Hyperlipidemia, unspecified; K21.9 Gastro-esophageal reflux disease without esophagitis; F41.9 Anxiety disorder, unspecified; F39 Unspecified mood [affective] disorder; M19.90 Unspecified osteoarthritis, unspecified site; Z79.899 Other long term (current) drug therapy; Z79.52 Long term (current) use of systemic steroids
CPT/HCPCS: 36415; 80048; 80053; 83735; 84100; 85025; 85610; 85730; 96361; 96365; 96366; 96375; 99218; 99251; 99284; A4216; G0378; G0463; J1568

== ENCOUNTER 2025-04-23 14:20 | Emergency (ER) | payer BC, SELFPAY ==
[2025-04-23 14:21] VITALS: BP 143/78; PULSE 82; RESP 16; TEMP 36.8; O2SAT 96; BMI 26.0
[2025-04-23 17:37] VITALS: PULSE 81; RESP 16; O2SAT 100
[2025-04-23 17:41] LABS: Mucous, Urine 0 SEEN /hpf (<or=2+); Squamous Epithelial Cells - UA 0 SEEN /hpf (0-5)
[2025-04-23 17:44] LABS: Color, Urine Yellow (Yellow); Glucose, Dipstick Normal (Normal); Ketone-Dipstick Negative (Negative); Leukocyte Esterase-Dipstick Negative /ul (Negative); Nitrite-Dipstick Negative (Negative); Occult Blood-Urine 10 /ul (Negative); Protein-Dipstick 15 mg/dl (Negative); Specific Gravity, Urine 1.015 (1.002-1.030); Urine Bilirubin Dipstick Negative (Negative)
[2025-04-23 17:45] LABS: Hematocrit 43.3 % (40-54); Hemoglobin 14.2 g/dL (13.0-16.5); Immature Granulocytes Count 0.020 X10^3/uL (0.0-0.0); Mean Corp Hgb Conc 32.8 g/dL (32-36); Mean Corpuscular Volume 89.8 fL (80-94); Mean Platelet Vol. 12.2 fl (6.2-12.0); NRBC Flagged by Analyzer 0 % (0-5); Platelet Count 121 K/mm3 (150-450); RBC Distribution Width CV 13.5 % (11.6-14.6); RBC Distribution Width SD 44.5 fl (35.1-43.9); Red Blood Count 4.82 M/mm3 (4.6-6.2); White Blood Count 8.8 K/mm3 (4.4-11.0)
--- NOTE | 2025-04-23 17:46 | CT_ITS ---
PROCEDURE: CT ABDOMEN/PELVIS W IV CONT ONLY 04/23/2025 REASON FOR EXAM: R GROIN PAIN, HX OF HERNIA TECHNIQUE: Procedure Code: [id number] Modality: CT Procedure: ABDOMEN/PELVIS W IV CONT ONLY Coronal and Sagittal reconstruction series were provided. CONTRAST: Isovue 370 VOLUME: 100 mL One or more dose reduction techniques were used (e.g., Automated exposure control, adjustment of the mA and/or kV according to patient size, use of iterative reconstruction technique. RADIATION DOSE SUMMARY: DLP: 771.09 mGycm COMPARISON: None. FINDINGS: Lung bases: Clear. Liver: No significant abnormality. Subcentimeter presumed cyst in the left lobe. Gallbladder: Unremarkable. Spleen: Unremarkable. Pancreas: Unremarkable. Adrenals: Unremarkable. Kidneys: Unremarkable. No urolithiasis or hydronephrosis. Bladder: Unremarkable. Reproductive Organs: Mildly enlarged prostate. Small right inguinal hernia. Bowel: No evidence of obstruction or active inflammatory process. Normal appendix. Small right inguinal hernia containing a short-segment of herniated distal small bowel and mesenteric fat/vessels, without findings to suggest obstruction or strangulation/incarceration. Lymph nodes: No enlarged abdominopelvic lymph nodes. Vasculature: Normal in course and caliber. Mild atherosclerotic disease. Peritoneum / Retroperitoneum: No ascites or free air. Bones: Mild degenerative changes of the spine. CT/Abdomen/Pelvis W IV Cont ONLY IMPRESSION: Small right inguinal hernia containing a short-segment of herniated distal smal l bowel in the right inguinal canal, without evidence for obstruction or strangulation/incarceration. Reading Location: [id number]
[2025-04-23] MEDS: 0.9% Normal Saline (1000mL) 1,000 ML 999 ML IV (18:08)
[2025-04-23 18:21] LABS: AST(SGOT) 16 U/L (<=37); Alanine Aminotransfer ALT/SGPT 15 U/L (<=46); Albumin, Serum 4.4 g/dL (3.4-4.8); Alkaline Phosphatase 89 U/L (40-129); Anion Gap 11 (5-15); BUN 21 mg/dL (4-19); BUN/Creat Ratio 21.6 RATIO (10-20); Calcium,Total 9.6 mg/dL (7.6-11.0); Carbon Dioxide 22.9 mmol/L (21.0-32.0); Chloride 108 mmol/L (98-108); Estimated Creatinine Clearance 81.94 ml/min (50-250); Globulin 2.3 g/dL (2.2-4.2); Glucose 111 mg/dL (70-99); Lipase 51 U/L (13-75); Potassium 4.1 mmol/L (3.3-5.1)
--- NOTE | 2025-04-23 18:27 | EX.ED.GUMALE ---
HPI History of Present Illness Chief Complaint: Male Pain/Injury Narrative Narrative: Patient 64-year-old male past medical history of GERD, ITP, hypertension, lipidemia, anxiety who presented to the emergency department with the chief complaint of right groin pain. He states that about 2 weeks he is scheduled to have surgery for his inguinal hernia by Dr. Ruiz. He states that the pain has been progressively worsening through the weekend he is having significant mount of pain and therefore he was advised to come here to the emergency department to be further evaluated. He states that he does not recall a inciting event where his hernia developed. He did note back in January he lost his youngest brother which he has been lifting and carrying stuff and attempts to clean out his house with other family members but does not recall ever having pain during this episode. [facility] Medical History Osteoarthritis GERD (gastroesophageal reflux disease) Kidney stones Non-smoker Hypertension History of ITP Chronic ITP (idiopathic thrombocytopenic purpura) Seasonal affective disorder History of hypertension History of hyperlipidemia History of anxiety Home Medications ?Medication ?Instructions ?Recorded ?Last Taken ?Type lisinopril 5 mg tablet 5 mg PO DAILY BP 11/08/18 11/08/20 08:00 History eltrombopag olamine 25 mg tablet 25 mg PO DAILY 04/17/25 Unknown History (Promacta) hydroxyzine HCl 25 mg tablet 25 mg PO BID PRN 04/17/25 Unknown History multivitamin 1 tab PO DAILY 04/17/25 Unknown History ondansetron 4 mg disintegrating 4 mg PO Q6H PRN nausea and 04/23/25 Unknown Rx tablet vomiting #20 tabs oxycodone-acetaminophen 5 mg-325 1 tab PO Q6H PRN pain 2 days #8 04/23/25 Unknown Rx mg tablet (Endocet) tabs Allergy/AdvReac Type Severity Reaction Status Date / Time meperidine (From Demerol) Allergy Severe Anaphylaxis Verified 04/23/25 14:22 Family History Mother Osteoarthritis Father Heart disease Surgical History S/P ureteral stent placement S/P tonsillectomy Social History household members: none Smoking Status: Never smoker alcohol intake: current alcohol intake frequency: a few times a month substance use type: does not use ROS ROS ED ROS Narrative Constitutional: Denies any fevers, chills, headaches Cardiovascular: Denies chest pain Respiratory: Denies shortness of breath Abdomen: Complains of lower abdominal pain denies nausea vomiting diarrhea : Denies any urinary symptoms Neurological: Denies any numbness, weakness, tingling Musculoskeletal: Denies back pain Skin: Denies rashes or lesions EXAM Physical Exam Narrative Exam Narrative: General: Patient is lying in bed rest comfortably did not appear to be in acute distress Head: Atraumatic, normocephalic Eyes: PERRL bilaterally, EOMI bilaterally, no conjunctival injection noted Neck: Soft, supple, trachea midline Cardiovascular: Regular rate and rhythm Respiratory: Clear to auscultation bilaterally Abdomen: Soft, nondistended, mild tenderness to palpation the right lower quadrant no rebound or guarding on exam Genitourinary exam: No tenderness palpation over the bilateral testicles, no urethral discharge noted, normal vertical lie of the bilateral testicles, patient does have tenderness to palpation in the right inguinal region with noted hernia no hernia noted in the left inguinal region Extremities: +5/5 strength noted in the bilateral lower extremity Neurological: Patient follow commands and that he was at [facility] the year is 2024 Skin: Warm, dry, intact no rashes or lesions noted Const Vital Signs: 04/23/25 14:21 04/23/25 17:37 04/23/25 19:00 Temperature 98.2 F Temperature Source Oral Pulse Rate 82 81 78 Respiratory Rate 16 16 16 Blood Pressure 143/78 H Blood Pressure Mean 99 Pulse Ox 96 100 Oxygen Delivery Method Room Air 04/23/25 19:45 Temperature 98.2 F Temperature Source Pulse Rate 78 Respiratory Rate 16 Blood Pressure 143/78 H Blood Pressure Mean 99 Pulse Ox 100 Oxygen Delivery Method MDM MDM MDM Narrative Medical decision making narrative: Patient is a 64-year-old male who presented to the emergency department the chief complaint of right inguinal pain and concern for his hernia. On the differential diagnose includes but limited to incarcerated hernia, strangulated hernia, inguinal hernia. Once workup is obtained reviewed he will be reevaluated. Patient be given IV fluids morphine and Zofran. Patient's CBC was reviewed and showed no evidence leukocytosis white blood count 8.8, he was 14.2, plate count was noted to be 121. Patient odium normal 142, potassium normal 4.1, creatinine was notably normal at 0.97. Patient AST and ALT normal at 16 and 15 respectively. Patient lipase normal at 51 urinalysis reviewed showed no evidence of infection. Patient CT ab pelvis with IV contrast reviewed and showed small right inguinal hernia containing a short segment of herniated distal small bowel in the right inguinal canal without evidence of obstruction or strangulation/incarceration. I reached out to on-call general surgeon Dr. Ruiz who states the patient go home and follow-up in the office. I discussed this plan with the patient was advised to call his office tomorrow for an appointment and return with worsening symptoms or any other concerns. He is agreeable this plan. He was given prescription for Percocet/Endocet and Zofran for severe pain he is advised to not operate anything under the influence of this medication. All question concerns answered he was discharged home in stable condition Lab Data Labs: Laboratory Results - last 24 hr 04/23/25 04/23/25 17:30 17:33 WBC 8.8 RBC 4.82 Hgb 14.2 Hct 43.3 MCV 89.8 MCH 29.5 MCHC 32.8 RDW Std Deviation 44.5 H RDW Coeff of Dave 13.5 Plt Count 121 L MPV 12.2 H Immature Gran % (Auto) 0.200 Neut % (Auto) 69.3 Lymph % (Auto) 20.1 Butts % (Auto) 9.4 Eos % (Auto) 0.5 Baso % (Auto) 0.5 Absolute Neuts (auto) 6.1 Absolute Lymphs (auto) 1.77 Nucleated RBC % 0 Sodium 142 Potassium 4.1 Chloride 108 Carbon Dioxide 22.9 Anion Gap 11 BUN 21 H Creatinine 0.97 Estim Creat Clear Calc 81.94 Est GFR (MDRD) Non-Af 87 BUN/Creatinine Ratio 21.6 H Glucose 111 H Calcium 9.6 Total Bilirubin 0.27 AST 16 ALT 15 Alkaline Phosphatase 89 Total Protein 6.7 Albumin 4.4 Globulin 2.3 Albumin/Globulin Ratio 1.9 Lipase 51 Urine Color Yellow Urine Clarity Clear Urine pH 7.0 Ur Specific [place] 1.015 Urine Protein 15 H Urine Glucose (UA) Normal Urine Ketones Negative Urine Occult Blood 10 H Urine Nitrite Negative Urine Bilirubin Negative Urine Urobilinogen Normal Ur Leukocyte Esterase Negative Urine RBC 0-5 SEEN Urine WBC 0-5 SEEN Ur Squamous Epith Cells 0 SEEN Urine Bacteria 0 SEEN Urine Mucus 0 SEEN Radiography Diagnostic Testing: Clinical Impression(s) from Imaging Studies Abdomen/Pelvis CT 04/23/25 17:46 IMPRESSION: Small right inguinal hernia containing a short-segment of herniated distal small bowel in the right inguinal canal, without evidence for obstruction or strangulation/incarceration. Reading Location: [id number] Discharge Plan Triage Chief Complaint: Male Pain/Injury ED Provider: Sg Jean-Baptiste Dx/Rx/DC Orders Clinical Impression: Hernia, inguinal, right, Abdominal pain, History of idiopathic thrombocytopenic purpura Prescriptions: New oxycodone-acetaminophen [Endocet] 5-325 mg tablet 1 tab PO Q6H PRN (Reason: pain) 2 Days Qty: 8 0RF ondansetron 4 mg tablet,disintegrating 4 mg PO Q6H PRN (Reason: nausea and vomiting) Qty: 20 0RF No Action multivitamin Tablet 1 tab PO DAILY hydroxyzine HCl 25 mg tablet 25 mg PO BID PRN eltrombopag olamine [Promacta] 25 mg tablet 25 mg PO DAILY Rx Instructions: administer on an empty stomach, at least 1 hour before or 2 hours after food/meal(s) lisinopril 5 MG tablet 5 mg PO DAILY Primary Care Provider: Garrett Watson Referrals: Garrett Watson DO [Primary Care Provider, Family Practice] Activity Restrictions/Additional Instructions: Follow-up with your doctor in outpatient setting. Call Dr. Ruiz office tomorrow as we discussed. Use prescription for severe pain as we described do not operate anything under the influence of this medication and use Zofran with this as it can make your stomach upset. Return with persistent nausea vomiting not keeping down worsening pain fevers or any other concerns your CT did not show any evidence of obstruction/incarceration/strangulation Print Language: Serbian Disposition Disposition: Home, Self Care
[2025-04-23 18:37] LABS: Red Blood Cells-Urine 0-5 SEEN /hpf (0-5)
[2025-04-23 19:00] VITALS: PULSE 78; RESP 16
[2025-04-23 19:45] VITALS: BP 143/78; PULSE 78; RESP 16; TEMP 36.8; O2SAT 100
== END 2025-04-23 20:23 | disposition home or self-care (01) ==
PROVIDERS: Emergency Provider Emergency Medicine; PCP Family Medicine; Visit Provider Emergency Medicine
DX: K40.90 Unilateral inguinal hernia, without obstruction or gangrene, not specified as recurrent (principal); D69.3 Immune thrombocytopenic purpura; E78.5 Hyperlipidemia, unspecified; I10 Essential (primary) hypertension; R10.9 Unspecified abdominal pain; Z87.442 Personal history of urinary calculi
CPT/HCPCS: 74177; 80053; 81001; 83690; 85025; 96361; 96374; 96375; 99283; Q9967; J2405

== ENCOUNTER 2025-04-27 13:27 | Day surgery (SDC) | payer BC, SELFPAY ==
[2025-04-27] VITALS (11 sets, daily range): BP systolic 116–168; BP diastolic 67–91; PULSE 63–79; RESP 16–18; TEMP 36.5–37.5; O2SAT 93–100; BMI 25.4
--- NOTE | 2025-04-27 14:00 | EKG12_ITS ---
Test Reason : PRE OP Blood Pressure : */* mmHG Vent. Rate : 69 BPM Atrial Rate : 69 BPM P-R Int : 160 ms QRS Dur : 96 ms QT Int : 404 ms P-R-T Axes : 52 13 33 degrees QTcB Int : 432 ms Normal sinus rhythm Minimal voltage criteria for LVH, may be normal variant ( Sokolow-Nichols ) Borderline ECG When compared with ECG of 06-Jun-2012 05:51, No significant change was found Confirmed by Quinton Forbes (Cindy), continuity editor ISABEL GARRISON ([id number]) on 05/01/2025 11:39:31 AM Also confirmed by Quinton Forbes (Cindy), continuity editor ISABEL GARRISON ([id number]) on 05/02/2025 10:15:55 AM Referred By: Steve Ruiz Confirmed By: Quinton Forbes
[2025-04-27] MEDS: Lactated Ringers 1,000 ML 15 ML IV (14:19)
[2025-04-27 14:48] LABS: Prothrombin Time (Protime)PT. 13.5 SECONDS (11.7-14.9)
[2025-04-27 14:49] LABS: Partial Thromboplast Time 24.3 Seconds (24.1-36.2)
--- NOTE | 2025-04-27 15:20 | PRE.ANES_ITS ---
ASA Classification* ASA Classification ASA Classification: 2 Assessment & Plan Anesthesia* Anesthesia Assessment Anesthesia Assessment: Discussed sedation and/or anesthesia options, risks, benefits, and alternatives with patient/parents/legal guardian/POA. Questions invited. The patient/parents/legal guardian/POA seems to understand and agrees to proceed with anesthesia plan. Reviewed the physical assessment, medical history, allergy history and patient home medications list prior to surgery/procedure/anesthetic and documented any changes. Performed airway and anesthesia risk assessments. Anesthesia Type Anesthesia Type: General History Source History Obtained from:: Patient and Chart Anesthesia Focused Assessment* Temperature: 98.6 F Pulse Rate: 79 Blood Pressure: 168/85 Respiratory Rate: 18 Pulse Ox: 100 Oxygen Delivery Method: Room Air Airway Assessment Mouth opens: >3 cm Mallampati Score: I Teeth Condition: Caps/Crowns (Patient has a couple of capped incisors. They are tight.) Neck Range of motion (ROM): Limited ROM (Somewhat Decreased) Labs Anesthesia Preop lab: CBC WBC, (4.4-11.0) 8.8 K/mm3 04/23/25, : RBC, (4.6-6.2) 4.82 M/mm3 04/23/25, 17:33 Hgb, (13.0-16.5) 14.2 g/dL 04/23/25, : Hct, (40-54) 43.3 % 04/23/25, 17:33 Plt Count, (150-450) 121 K/mm3 L 04/23/25, 17:33 CHEMISTRY Potassium, (3.3-5.1) 4.1 mmol/L 04/23/25, 17:33 Sodium, (133-145) 142 mmol/L 04/23/25, 17:33 Magnesium, (1.6-2.6) 2.5 mg/dL 11/08/20, Unknown Phosphorus, (2.5-4.9) 1.9 mg/dL L 11/08/20, Unknown BUN, (4-19) 21 mg/dL H 04/23/25, 17:33 Creatinine, (0.70-1.20) 0.97 mg/dL 04/23/25, 17:33 Glucose, (70-99) 111 mg/dL H 04/23/25, 17:33 COAG PT, (11.7-14.9) 13.5 SECONDS Today, 14:19 Pre-Assessment Diagnosis/Proposed Procedure Planned Operative Procedure(s): ROBOTIC RIH REPAIR WITH MESH. 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 When Was Last Pacemaker Check QUESTION #4 FULL TEXT: You/Your Family Experience fever (hyperthermia) with Anesthesia Last Oral Intake Last Oral intake: Last Oral Intake NPO since 13:00 04/27/25 14:07 Meds taken in AM with sips of Yes 04/27/25 14:07 water? Meds patient instructed to see medlist 04/27/25 14:07 take am of surgery Any additional information?: Yes NPO since: 13:00 (Patient had water at 1 PM.) Meds taken in AM with sips of water?: Yes PONV PONV - chemical plant operator supervisor: PONV - chemical plant operator supervisor Female No 04/25/25 11:03 HX of Motion Sickness No 04/25/25 11:03 HX of N/V After Surgery No 04/25/25 11:03 Non-Smoker Yes 04/25/25 11:03 Duration of Surgery greater Yes 04/25/25 11:03 than 60 minutes Number of Risk Factors 2 04/25/25 11:03 PONV Score Moderate Risk 04/25/25 11:03 Height & Weight Height & Weight: Anesthesia: Height & Weight Height 5 ft 11 in 04/27/25 14:07 Weight: 82.8 kg 04/27/25 14:07 Body Mass Index (BMI) 25.4 04/27/25 14:07 Respiratory Assessment Respiratory Assessment - chemical plant operator supervisor: Respiratory Tract Infection Hx - chemical plant operator supervisor Hx Respiratory Tract Infection No 04/25/25 11:03 STOP Sleep Apnea STOP Sleep Apnea - chemical plant operator supervisor: STOP Sleep Apnea - chemical plant operator supervisor Hx Hypertension Yes: CONTROLLED WITH MED 04/25/25 11:03 Hx Sleep Apnea No 04/25/25 11:03 CPAP BIPAP Do you snore loudly (louder No 04/25/25 11:03 than talking or can be heard Do you often feel tired/ No 04/25/25 11:03 fatigued/ sleepy during daytime? Has anyone observed you stop No 04/25/25 11:03 breathing during sleep? STOP Results Negative 04/25/25 11:03 QUESTION #5 FULL TEXT : Do you snore loudly (louder than talking or can be heard through closed doors)? Tobacco Use History Tobacco Use History - chemical plant operator supervisor: Tobacco Use History - chemical plant operator supervisor Tobacco Use Non-smoker 11/08/18 14:39 Smoking Status Never smoker 04/25/25 11:03 Hx Tobacco Use No 04/25/25 11:03 Years Smoking Packs Smoked per Day Smoking Cessation Date was within the last 15 years Hx Smoking Cessation Date Hx Smoking Cessation Counseling Hematologic Medial History Hematologic Hx - chemical plant operator supervisor: Hematologic Medical Hx - weaver hand Hx of Blood Transfusion No 04/25/25 11:03 Hx of Transfusion in last 3 No 04/25/25 11:03 Months Date of Last Transfusion (if within last 3 months) Ever experience any problems No 04/25/25 11:03 with transfusion(s)? Specify any problems Hx of Preganancy in last 3 N/A 04/25/25 11:03 Months Nurse Filling Out Transfusion DSCHRIBER 04/25/25 11:03 & Questions: Date: 04/25/25 04/25/25 11:03 Time: 11:04 04/25/25 11:03 Patient unable to answer at this time (ie. confused, unrespo /Reproduction History /Reproductive History - chemical plant operator supervisor: /Reproductive Hx- chemical plant operator supervisor Hx Now No 04/25/25 11:03 Gestational Age (in weeks): EDC: Hx Hx Para Hx Section SAB No 04/25/25 11:03 Does the father of the baby or his family experience fever w Father of the baby Malignant Hypertension history comment Active Medications Active Medications: Current Medications Generic Name Dose Route Start Last Admin Trade Name Freq PRN Reason Stop Dose Admin Lactated Ringer's 1,000 mls @ 15 mls/hr 04/27/25 13:45 04/27/25 14:19 IV 15 mls/hr .Q48H REGINO Administration PFSH Medical History Wears glasses Anxiety Depression Alcohol use History of stress test Non-smoker Hypertension Chronic ITP (idiopathic thrombocytopenic purpura) Home Medications ?Medication ?Instructions ?Recorded ?Last Taken ?Type lisinopril 5 mg tablet 5 mg PO DAILY BP 11/08/18 08:00 History eltrombopag olamine 25 mg tablet 25 mg PO DAILY 04/27/25 History (Promacta) multivitamin 1 tab PO DAILY 04/17/25 Unkn own History ondansetron 4 mg disintegrating 4 mg PO Q6H PRN nausea and 04/23/25 Unknown Rx tablet vomiting #20 tabs oxycodone-acetaminophen 5 mg-325 1 tab PO Q6H PRN pain 2 days #8 04/23/25 Unknown Rx mg tablet (Endocet) tabs Allergy/AdvReac Type Severity Reaction Status Date / Time meperidine (From Demerol) Allergy Severe Anaphylaxis Verified 04/27/25 14:06 Family History Mother Osteoarthritis Father Heart disease Surgical History History of esophagogastroduodenoscopy (EGD) Hx of colonoscopy History of extracorporeal shockwave lithotripsy (ESWL) S/P tonsillectomy Social History household members: none Smoking Status: Never smoker alcohol intake: current alcohol intake frequency: a few times a month substance use type: does not use Review of Systems (Anesthesia) ROS Narrative System reviewed and no additional complaints, except as documented.
--- NOTE | 2025-04-27 16:26 | PCM.HP.STD ---
HPI - General General Date of Admission: 04/27/25 Date of Service: 04/27/25 Chief Complaint: Right inguinal hernia HPI Narrative KVNG KUMAR, is a 64 M who presents for elective repair of a right inguinal hernia. Patient was seen through the office recently with complaints of right inguinal pain and a bulge. He was scheduled for robotic repair I believe in the end of April or early May. Earlier this week he presented to the emergency room with complaints of pain in the right groin. He was found to have a small amount of small bowel within the hernia. This was not incarcerated or strangulated. He called the office to hopefully move his surgery up. Patient presents today for surgical repair of the right inguinal hernia [facility] Medical History Wears glasses Anxiety Depression Alcohol use History of stress test Non-smoker Hypertension Chronic ITP (idiopathic thrombocytopenic purpura) Home Medications ?Medication ?Instructions ?Recorded ?Last Taken ?Type lisinopril 5 mg tablet 5 mg PO DAILY BP 11/08/18 11/08/20 08:00 History eltrombopag olamine 25 mg tablet 25 mg PO DAILY 04/17/25 04/27/25 History (Promacta) multivitamin 1 tab PO DAILY 04/17/25 Unknown History ondansetron 4 mg disintegrating 4 mg PO Q6H PRN nausea and 04/23/25 Unknown Rx tablet vomiting #20 tabs oxycodone-acetaminophen 5 mg-325 1 tab PO Q6H PRN pain 2 days #8 04/23/25 Unknown Rx mg tablet (Endocet) tabs Allergy/AdvReac Type Severity Reaction Status Date / Time meperidine (From Demerol) Allergy Severe Anaphylaxis Verified 04/27/25 14:06 Family History Mother Osteoarthritis Father Heart disease Surgical History History of esophagogastroduodenoscopy (EGD) Hx of colonoscopy History of extracorporeal shockwave lithotripsy (ESWL) S/P tonsillectomy Social History household members: none Smoking Status: Never smoker alcohol intake: current alcohol intake frequency: a few times a month substance use type: does not use Patient's Goals Of Care . What would you like to achieve or improve as a result of your hospital stay?: l Vital Signs Vital Signs Vital Signs: 04/27/25 14:07 04/27/25 14:07 04/27/25 14:07 Temperature 98.6 F Temperature Source Temporal Pulse Rate 79 Respiratory Rate 18 Respiratory Pattern Normal Blood Pressure 168/85 H Blood Pressure Mean 112 Blood Pressure Source Monitor Blood Pressure Position Sitting Blood Pressure Location Left Arm Baseline BP 168/85 Pulse Ox 100 Oxygen Delivery Method Room Air 04/27/25 15:30 Temperature 98.6 F Temperature Source Pulse Rate 79 Respiratory Rate 18 Respiratory Pattern Blood Pressure 168/85 H Blood Pressure Mean Blood Pressure Source Blood Pressure Position Blood Pressure Location Baseline BP Pulse Ox 100 Oxygen Delivery Method Room Air Weight Weight: 182 lb 8.684 oz Body Mass Index (BMI) 25.4 Physical Exam Const alert, oriented x3 and no apparent distress Results Lab / Micro Data Labs: Laboratory Results - last 24 hr 04/27/25 14:19: PT 13.5, INR 1.0, APTT 24.3 Assessment & Plan Assessment/Plan (1) Hernia, inguinal, right: PLAN: Plan The patient is a 64-year-old male with a right inguinal hernia. I have offered him a robotic right inguinal hernia repair with mesh. We discussed the details of the planned procedure and he wishes to proceed. This will begin momentarily.
[2025-04-27] MEDS: Midazolam 2 MG/2 ML Syringe IV (16:50)
[2025-04-27] MEDS: Lactated Ringers 1,000 ML 1000 ML IV (16:51)
[2025-04-27] MEDS: Cefazolin 1 GM/5 ML Vial 2 GM IV (16:51)
[2025-04-27] MEDS: Lidocaine 1% (5 ml sdv) 5 ML Vial IV (16:55)
[2025-04-27] MEDS: fentaNYL 100 MCG/2 ML Ampul 200 MCG IV (17:41)
[2025-04-27] MEDS: Bupiv/Epi 0.25% 30 ML Vial (18:09)
--- NOTE | 2025-04-27 18:11 | EX.PCM.DISCH ---
Discharge Instructions Diet Discharge Diet: Light diet - advance as tolerated Activity Discharge Activity: May Shower May shower in (days): 1 Ice area for (Minutes): 30 Lifting Restrictions: No lifting pushing or pulling more than 20 pounds for 6 weeks Dressing / Incision Call your doctor if your incision/area has: Continuous Slow Oozing, Sudden Increased Bleeding, Increased Pain/ Swelling, Increased Redness, Foul Smelling Discharge and Swelling at the incision site Call your doctor if you observe: Fever of 101 or Higher Cleanse incision/area with: Soap & Water Follow Up Care Please Follow Up With: Steve Ruiz MD When: 2 weeks. Please call office to schedule appointment Test Results: Test results from this visit will be discussed in further detail at your follow-up appointment, if applicable. Discharge Plan Admission Primary Reason for Your Visit: Right inguinal hernia Attending Provider: Steve Ruiz Primary Care Provider: Garrett Watson Instructions Print Language: Sammarinese Discharge Orders/Prescriptions Prescriptions: New oxycodone 5 mg tablet 5 mg PO Q8H PRN (Reason: pain) 3 Days Qty: 12 0RF Continued multivitamin Tablet 1 tab PO DAILY eltrombopag olamine [Promacta] 25 mg tablet 25 mg PO DAILY Rx Instructions: administer on an empty stomach, at least 1 hour before or 2 hours after food/meal(s) lisinopril 5 MG tablet 5 mg PO DAILY oxycodone-acetaminophen [Endocet] 5-325 mg tablet 1 tab PO Q6H PRN (Reason: pain) 2 Days Qty: 8 0RF ondansetron 4 mg tablet,disintegrating 4 mg PO Q6H PRN (Reason: nausea and vomiting) Qty: 20 0RF Referrals / Follow Up: Garrett Watson DO [Primary Care Provider, Family Practice] Disposition Disposition (needs filled in before D/C Order can be placed): Home, Self Care
--- NOTE | 2025-04-27 18:16 | PCM.OPRPT ---
Procedures Digestive 40xxx-49xxx: [id number] Lap ing hernia repair init Operative Report (Standard) Operative Information Date of Procedure: 04/27/25 Pre-Operative Diagnosis: Right inguinal hernia Post-Operative Diagnosis: Same Surgery/Procedure Performed: Robotic right inguinal hernia repair with mesh enrolled agent: Yes Resource Efficiency Manager: Audie Barreto Tasks completed by first calender worker: Closing, Trocar, Retracting and Other Additional perinatal breastfeeding assistant?: No Type of Anesthesia: General and Local RN Documented Start/Stop Times: Operation Date: 04/27/25 15:15 Case Time Into Pre-Op 04/27/25 13:36 Anesthesia Start 04/27/25 16:51 Into Room 04/27/25 16:51 Procedure Start 04/27/25 17:09 Procedure Start Time: 17:09 Procedure Stop Time: 18:15 Select all DRAINS/GRAFTS/IMPLANTS that apply: Prosthetic device Prosthetic device details: ProGrip mesh 10 x 15 cm Special Medications: 2 g Ancef IV Estimated Blood Loss: 10 mL Specimen collected: No Description of surgery: The patient is a 64-year-old male who presented to the office recently with a right inguinal hernia. I offered him a robotic repair with mesh. We discussed the details of the planned procedure and he wished to proceed. Patient had an ER visit earlier this week with increasing pain. We able to move him up on the operative schedule due to the increase in pain. Patient was brought to the operating room today following informed consent. Preoperative antibiotics were given and a timeout was performed. He was placed supine on the operative table with arms outstretched and arm boards. A general anesthesia was induced. Once adequately sedated the abdomen was then prepped and draped in the usual sterile manner. His arms were tucked at his sides. An 8 mm incision was made above the umbilicus through which a 5 mm trocar was placed through tiny umbilical hernia containing fat. The abdomen is then fully insufflated with CO2 gas. A 5 mm 0 degree scope was inserted. There were no signs of bowel or vascular injury. Two 8 mm trocars were then inserted under direct visualization. 1 was placed on the right side of the abdomen and the other was placed on the left side. The umbilical trocar was then switched out to an 8 mm trocar as well. The patient was then placed into mild Trendelenburg positioning. The da Osmani robot was then brought onto the operative field and appropriately docked. Instrumentation was inserted as well. The pelvis was visualized. There was no evidence of left inguinal hernia. There was a right inguinal hernia. This did not contain any fat or bowel. The peritoneum overlying the right inguinal hernia was then incised in a lateral to medial direction. A Sub peritoneal plane was then developed with blunt dissection as well as electrocautery and scissors. Anton's ligament was dissected out medially. The hernia sac was dissected free from the surrounding cord structures. The hernia sac was completely reduced. Once sufficient dissection was performed, a 10 x 15 cm piece of ProGrip mesh was trimmed to fit the operative site. This was then dipped in antibiotic solution and was then inserted into the abdomen. It was laid into position covering over the fascial defect. The mesh laid nicely. The peritoneum was then closed using a 6 inch V-Loc suture in a running manner. This closed the peritoneum nicely. 2 interrupted sutures of 3-0 Vicryl was also utilized to close a small hole in the hernia sac. Next attention was turned to the umbilical hernia site. A fascial closure device was then inserted and 0 PDS was then used to close the fascial defect. Again fascial defect was probably about 5 to 8 mm. This closed down nicely. The remaining trocars were opened up. Insufflation was allowed to escape. Local anesthetic was injected into each incisions. Incisions were then closed with 4-0 Vicryl. Skin glue was applied as dressing. He was waken from anesthesia and taken to recovery in good condition. Surgical Findings: See operative note Complications Complications: No Admit VTE Documentation VTE Present on Admission: No VTE Mechan Device Prophylaxis: SCD's VTE Pharm Prophylaxis ordered?: No Reason prophylaxis not ordered: Treatment Not Indicated
--- NOTE | 2025-04-27 18:43 | PCM.POST.ANE ---
Anesthesia: Postop Eval I Current Vital Signs Temperature: 98 F Pulse Rate: 65 Blood Pressure: 135/70 Respiratory Rate: 16 Pulse Ox: 98 Oxygen Delivery Method: Room Air Assessment Airway patent: Yes Spontaneous unlabored respirations: Yes Mental status: Awake and Calm nausea: No Vomiting: No Anesthesia Complication: No Fluid Hydration Crystalloid volume administer (ml): 1,000 Total IV fluid infused: 1,000 Progress Note Anesthesia document: Postop Eval 1 completed: Yes
--- NOTE | 2025-04-27 20:23 | PCM.POSTANE2 ---
Anesthesia Postop Eval I Sum Postop Eval Completion status Anesthesia document: Postop Eval 1 completed: Yes Anesthesia Postop Eval I Summary Anesthesia Postop Eval I Summary: Anesthesia Postop Eval I: Assessment Summary Airway patent Yes 04/27/25 18:45 Spontaneous unlabored Yes 04/27/25 18:45 respirations Mental status Awake,Calm 04/27/25 18:45 nausea No 04/27/25 18:45 Vomiting No 04/27/25 18:45 Anesthesia Postop Eval I: Fluid Summary Crystalloid volume administer 1,000 04/27/25 18:45 (ml) Colloids volume administered ( ml) Blood Product volume administered (ml) Total IV fluid infused 1,000 04/27/25 18:45 Anesthesia Postop Eval I: Summary Notes Anesthesia Complication No 04/27/25 18:45 Anesthesia Complication Comment: Post-operative progress note Anesthesia: Postop Eval II Evaluation Mental status: Awake and Calm Pain Level: 5 nausea: No Vomiting: No Progress Note Post-operative progress note: Patient continuously responded with yes to queries about pain. However pain medication would make his saturations go down. Finally got better with p.o. pain medications and sitting up and conversing with family. Complications Anesthesia Complication: No
== END 2025-04-27 21:43 | disposition home or self-care (01) ==
LOC: SDC 13:33 → AC 13:34
PROVIDERS: Anesthesiology; PCP Family Medicine; Referring Provider Surgery; Visit Provider Surgery
PROC: (CPT 49650; principal; 2025-04-27 14:55)
DX: K40.90 Unilateral inguinal hernia, without obstruction or gangrene, not specified as recurrent (principal); I10 Essential (primary) hypertension; K42.9 Umbilical hernia without obstruction or gangrene
CPT/HCPCS: 49650; S2900; 00840; 85610; 85730; 93005; C1781; J2405